=== PATIENT | male | born 1935 | race African-American/Black ===

== ENCOUNTER 2017-10-09 10:57 | Emergency (ER) | payer MEDICARE ==
[~2017-10-09] VITALS: Ht 175.3 cm; Wt 70.0 kg
[2017-10-09] MEDS ORDERED: BACITRACIN ZINC OINT UDPKT TOP ONE (11:45)
[2017-10-09 14:41] LABS: CHLORIDE 113 mEq/L (98-107)
[2017-10-09 14:44] LABS: HEMATOCRIT. 29.4 % (42.0-52.0); HEMOGLOBIN. 9.4 g/dL (14.0-18.0); MEAN CORPUSCULAR HEMOGLOBIN 27.2 pg (28.0-32.0); MEAN CORPUSCULAR VOLUME 85.5 fL (80.0-94.0); MEAN PLATELET VOLUME 7.4 fl (7.4-10.4); PLATELET 419 x1000/uL (130-400); RED BLOOD CELL COUNT 3.44 mill/uL (4.7-6.1); RED CELL DISTRIBUTION WIDTH 16.1 % (11.6-14.6)
[2017-10-09 14:51] LABS: INR 1.2; PARTIAL THROMBOPLASTIN TIME 30.5 sec (23.4-31.0); PROTHROMBIN TIME 11.7 sec (9.1-11.1)
[2017-10-09 14:53] LABS: CREATINE KINASE 39 IU/L (39-308)
[2017-10-09 15:19] LABS: PLATELET ESTIMATE INCREASED
[2017-10-09 15:40] VITALS: BP 131/76
== END 2017-10-09 16:29 | disposition home or self-care (01) ==
LOC: EDBD 10:57 → ER 12:29
DX: S00.81XA Abrasion of other part of head, initial encounter (principal); N28.9 Disorder of kidney and ureter, unspecified; E11.9 Type 2 diabetes mellitus without complications; Z85.9 Personal history of malignant neoplasm, unspecified; W19.XXXA Unspecified fall, initial encounter; Y93.89 Activity, other specified; Y92.89 Other specified places as the place of occurrence of the external cause; Y99.8 Other external cause status
CPT/HCPCS: 36415; 70450; 71045; 80053; 82550; 83880; 84484; 85025; 85610; 85730; 93005; 99285